=== PATIENT | female | born 1955 | race Two or more races ===

== ENCOUNTER 2017-12-21 12:24 | Outpatient (CLI) | payer OTHER ==
[~2017-12-21] VITALS: Ht 170.2 cm; Wt 71.7 kg
== END 2017-12-21 12:40 | disposition home or self-care (01) ==
LOC: OFIC 805 12:24
DX: H92.02 Otalgia, left ear (principal); T16.2XXA Foreign body in left ear, initial encounter; X58.XXXA Exposure to other specified factors, initial encounter; Y93.89 Activity, other specified; Y92.89 Other specified places as the place of occurrence of the external cause; Y99.8 Other external cause status

== ENCOUNTER 2018-11-12 11:26 | Outpatient (CLI) | payer OTHER | END 2018-11-12 11:31 | disposition home or self-care (01) | LOC: RAD 501 11:26 | DX: I10 Essential (primary) hypertension (principal); R06.02 Shortness of breath ==

== ENCOUNTER 2018-12-17 16:52 | Emergency (ER) | payer OTHER ==
[~2018-12-17] VITALS: Ht 170.2 cm; Wt 73.9 kg
[2018-12-19] MEDS ORDERED: SYNTH PO (10:33)
== END 2018-12-17 19:17 | disposition home or self-care (01) ==
LOC: ER 16:52 → EDBD 16:56 → ER 16:56
DX: S52.511A Displaced fracture of right radial styloid process, initial encounter for closed fracture (principal); W18.39XA Other fall on same level, initial encounter; Y93.89 Activity, other specified; Y92.89 Other specified places as the place of occurrence of the external cause; Y99.8 Other external cause status

== ENCOUNTER 2018-12-24 08:05 | Day surgery (SDC) | payer OTHER ==
[~2018-12-24 08:05] MED LIST: SYNTH PO
== END 2018-12-24 17:15 | disposition home or self-care (01) ==
LOC: CIR.AMB 08:05
DX: S52.571A Other intraarticular fracture of lower end of right radius, initial encounter for closed fracture (principal)
CPT/HCPCS: 25609; 25118; 25280; C1776

== ENCOUNTER 2019-01-10 11:20 | Outpatient (CLI) | payer OTHER | END 2019-01-10 14:06 | disposition home or self-care (01) | LOC: RAD 11:20 → RAD 501 11:20 → RAD 14:06 | DX: S69.91XA Unspecified injury of right wrist, hand and finger(s), initial encounter (principal); M25.531 Pain in right wrist ==

== ENCOUNTER 2019-03-28 11:40 | Outpatient (CLI) | payer OTHER | END 2019-03-28 12:41 | disposition home or self-care (01) | LOC: MAMO-SONO 11:40 | DX: N60.11 Diffuse cystic mastopathy of right breast (principal); N60.12 Diffuse cystic mastopathy of left breast; Z12.31 Encounter for screening mammogram for malignant neoplasm of breast; Z87.898 Personal history of other specified conditions ==

== ENCOUNTER 2019-03-28 12:49 | Outpatient (CLI) | payer OTHER | END 2019-03-28 12:52 | disposition home or self-care (01) | LOC: NUCLEAR 12:49 | DX: M81.0 Age-related osteoporosis without current pathological fracture (principal) ==

== ENCOUNTER 2020-05-19 13:56 | Outpatient (CLI) | payer OTHER | END 2020-05-19 14:04 | disposition home or self-care (01) | LOC: MAMO-SONO 13:56 | PROVIDERS: ATTEND Obstetrics & Gynecology | DX: Z12.31 Encounter for screening mammogram for malignant neoplasm of breast (principal); N60.11 Diffuse cystic mastopathy of right breast; N60.12 Diffuse cystic mastopathy of left breast ==

== ENCOUNTER 2020-10-31 08:53 | Emergency (ER) | payer OTHER ==
[~2020-10-31] VITALS: Ht 170.2 cm; Wt 70.3 kg
== END 2020-10-31 22:07 | disposition home or self-care (01) ==
LOC: ER 08:53
DX: U07.1 COVID-19 (principal); R06.02 Shortness of breath

== ENCOUNTER 2020-12-03 09:16 | Emergency (ER) | payer OTHER ==
[~2020-12-03] VITALS: Ht 170.2 cm; Wt 72.6 kg
[2020-12-03] MEDS ORDERED: SYNTHROID50 MCG (09:23)
== END 2020-12-03 10:15 | disposition home or self-care (01) ==
LOC: ER 09:16
DX: R53.81 Other malaise (principal); I10 Essential (primary) hypertension

== ENCOUNTER → 2021-11-03 | Emergency (ER) | payer OTHER ==
[~2021-11-03] VITALS: Ht 170.2 cm; Wt 71.7 kg
[~2021-11-03] MED LIST changes: +SYNTHROID50 MCG
== END | disposition left against medical advice (07) ==
LOC: ER 04:50
DX: Z53.21 Procedure and treatment not carried out due to patient leaving prior to being seen by health care provider (principal)

== ENCOUNTER 2025-06-11 13:31 | Outpatient (CLI) | payer OTHER | END 2025-06-11 13:33 | disposition home or self-care (01) | LOC: RAD 13:31 | PROVIDERS: ATTEND Plastic Surgery Surgery of the Hand | DX: Z01.818 Encounter for other preprocedural examination (principal) ==